=== PATIENT | female | born 1985 | race American Indian/Alaskan Native ===

== ENCOUNTER 2020-11-04 19:49 | Emergency (ER) | payer SELFPAY ==
--- NOTE | 2020-11-04 22:02 | Emergency Department Report ---
ED Abdominal Pain HPI - General Chief Complaint: Abdominal Pain Stated Complaint: ABDOMINAL PAIN/DIARRHEA Source: patient Mode of arrival: Ambulatory Limitations: No Limitations - History of Present Illness Initial Comments: Patient 35-year-old -[place] female who presents for bilateral lower abdominal pain and vaginal bleeding x1 month, patient states cramping pain is 5/10 intermittent with intermittent clots, dark red. Pt is G5, P5, A, LMP: 1 month ago, hx of ovarian cyst. pt denies dizziness no lightheadedness no n/v, no hx of anemia. there are no other exacerbating or relieving factors. MD Complaint: abdominal pain - Related Data Previous Rx's Medication Instructions Recorded Last Taken Type medroxyPROGESTERone ACETATE 10 mg PO DAILY PRN #7 tablet 11/04/20 Unknown Rx [Provera] traMADoL [Ultram] 50 mg PO Q8HR PRN #9 tablet 11/04/20 Unknown Rx Allergies Allergy/AdvReac Type Severity Reaction Status Date / Time Penicillins Allergy Hives Verified 11/04/20 21:36 ED Review of Systems ROS: Stated complaint: ABDOMINAL PAIN/DIARRHEA Other details as noted in HPI Constitutional: denies: chills, fever Eyes: denies: eye pain, eye discharge, vision change ENT: denies: ear pain, throat pain Respiratory: no symptoms reported Cardiovascular: denies: chest pain, palpitations Endocrine: no symptoms reported Gastrointestinal: abdominal pain. denies: nausea, diarrhea, constipation, melena Genitourinary: denies: urgency, dysuria, frequency, hematuria, discharge Musculoskeletal: back pain Skin: denies: rash, lesions Neurological: denies: headache, weakness, paresthesias Psychiatric: denies: anxiety, depression Hematological/Lymphatic: as per HPI ED Past Medical Hx - Past Medical History Previous Medical History?: Yes Additional medical history: Dysfunctional uternine Bleeding - Surgical History Past Surgical History?: Yes Additional Surgical History: for possible ectopic pregnacy that was not 2013 - Medications Home Medications: Home Medications Medication Instructions Recorded Confirmed Last Taken Type medroxyPROGESTERone ACETATE 10 mg PO DAILY PRN #7 tablet 11/04/20 Unknown Rx [Provera] traMADoL [Ultram] 50 mg PO Q8HR PRN #9 tablet 11/04/20 Unknown Rx ED Physical Exam - General Limitations: No Limitations General appearance: alert, in no apparent distress - Head Head exam: Present: atraumatic, normocephalic - Eye Eye exam: Present: normal appearance, EOMI Pupils: Present: normal accommodation - ENT ENT exam: Present: mucous membranes moist - Neck Neck exam: Present: normal inspection - Respiratory Respiratory exam: Present: normal lung sounds bilaterally. Absent: respiratory distress, wheezes, stridor - Cardiovascular Cardiovascular Exam: Present: regular rate, normal rhythm, normal heart sounds. Absent: systolic murmur, diastolic murmur, rubs, gallop - GI/Abdominal GI/Abdominal exam: Present: soft, normal bowel sounds. Absent: distended, tenderness, guarding, rebound, rigid, bruit, hernia - Rectal Rectal exam: Present: deferred - Extremities Exam Extremities exam: Present: normal inspection, full ROM. Absent: tenderness - Back Exam Back exam: Present: normal inspection, full ROM. Absent: tenderness, CVA tende rness (R), CVA tenderness (L) - Neurological Exam Neurological exam: Present: alert, oriented X3, CN II-XII intact, normal gait - Psychiatric Psychiatric exam: Present: normal affect, normal mood - Skin Skin exam: Present: warm, dry, intact, normal color. Absent: rash ED Course Vital Signs 11/04/20 21:36 Temperature 98.2 F Pulse Rate 77 Respiratory 18 Rate Blood Pressure 136/96 O2 Sat by Pulse 100 Oximetry ED Medical Decision Making - Lab Data Result diagrams: 11/04/20 22:01 Labs 11/04/20 11/04/20 22:01 Unknown WBC 9.0 RBC 3.66 Hgb 10.8 Hct 32.5 MCV 89 MCH 30 MCHC 33 RDW 17.5 H Plt Count 335 Lymph % (Auto) 39.8 H Starke % (Auto) 8.9 H Eos % (Auto) 1.7 Baso % (Auto) 0.8 Lymph # (Auto) 3.6 Starke # (Auto) 0.8 Eos # (Auto) 0.2 Baso # (Auto) 0.1 Seg Neutrophils % 48.8 Seg Neutrophils # 4.4 Urine Color Yellow Urine Turbidity Clear Urine pH 6.0 Ur Specific [place] 1.026 Urine Protein <15 mg/dl Urine Glucose (UA) Neg Urine Ketones Neg Urine Blood Neg Urine Nitrite Neg Urine Bilirubin Neg Urine Urobilinogen < 2.0 Ur Leukocyte Esterase Neg Urine WBC (Auto) < 1.0 Urine RBC (Auto) 7.0 U Epithel Cells (Auto) < 1.0 Urine Mucus Few Urine HCG, Qual Negative - Medical Decision Making H/H normal, Ua normal, pt is tolerating po intake there is no n/v, pt has hx ovarian cyst Plan: provera, ultram follow up with [facility] in 2-3 days , [facility]. pt verbalized agreement and understanding of discharge plan. Critical care attestation.: If time is entered above; I have spent that time in minutes in the direct care of this critically ill patient, excluding procedure time. ED Disposition Clinical Impression: Abnormal uterine bleeding (AUB) Disposition: TO HOME OR SELFCARE Is pt being admited?: No Does the pt Need Aspirin: No Condition: Stable Instructions: Abdominal Pain (ED), Abnormal Uterine Bleeding Additional Instructions: take medications as prescribed return to emergency if symptoms worsen , Prescriptions: medroxyPROGESTERone ACETATE [Provera] 10 mg PO DAILY PRN #7 tablet PRN Reason: vaginal bleeding traMADoL [Ultram] 50 mg PO Q8HR PRN #9 tablet PRN Reason: Pain Referrals: HIPOLITO CÁRDENAS JR, MD [Staff Physician] - 3-5 Days Forms: Work/School Release Form(ED) Time of Disposition: 22:39
[2020-11-04 22:20] LABS: Bilirubin,Urine NEG (Negative); Blood,Urine NEG (Negative); Color,Urine Yellow (Yellow); Mucus,Urine FEW /HPF; Protein,Urine <15 mg/dL mg/dL (Negative); Urobilinogen,Urine < 2.0 mg/dL (<2.0); WBC,Urine < 1.0 /HPF (0.0-6.0)
[2020-11-04 22:23] LABS: HCG Qualitative,Urine Negative (Negative)
[2020-11-04 22:29] LABS: Basophils # (Auto) 0.1 K/mm3 (0.0-0.1); Basophils % (Auto) 0.8 % (0.0-1.8); Eosinophils # (Auto) 0.2 K/mm3 (0.0-0.4); Eosinophils % (Auto) 1.7 % (0.0-4.3); Hematocrit 32.5 % (30.3-42.9); Hemoglobin 10.8 gm/dl (10.1-14.3); Lymphocytes # (Auto) 3.6 K/mm3 (1.2-5.4); Lymphocytes % (Auto) 39.8 % (13.4-35.0); Mean Corpuscular HGB Conc 33 % (30-34); Mean Corpuscular Volume 89 fl (79-97); Monocytes # (Auto) 0.8 K/mm3 (0.0-0.8); Monocytes % (Auto) 8.9 % (0.0-7.3); Platelet Count 335 K/mm3 (140-440); Red Blood Count 3.66 M/mm3 (3.65-5.03); Red Cell Distribution Width 17.5 % (13.2-15.2)
[2020-11-04] MEDS ORDERED: traMADol 50 MG TAB PO ONE (22:33)
[2020-11-04] MEDS ORDERED: medroxyPROGESTERone ACETATE 5 MG TAB PO ONE (23:34)
[2020-11-04 23:38] VITALS: BP 136/88
== END 2020-11-04 23:39 | disposition home or self-care (01) ==
LOC: ED 19:49
DX: N93.8 Other specified abnormal uterine and vaginal bleeding (principal); Z98.890 Other specified postprocedural states; Z79.899 Other long term (current) drug therapy
CPT/HCPCS: 36415; 81001; 81025; 85025; 99283